=== PATIENT | female | born 1940 | race Caucasian/White ===

== ENCOUNTER 2019-02-07 09:47 | Emergency (ER) | payer MEDICARE ==
[~2019-02-07] VITALS: Ht 152.4 cm; Wt 70.0 kg
[~2019-02-07 09:47] MED LIST: AMOXICILLIN/PO500 MG PO; AMOXICILLIN500 MG PO; ANTIVERT25 MG PO; AUGMENTIN875TAB PO; FLOXIN OTIC0.3 % AU; KEFLEX500 M1 PO; LISINOP/HCTZ1 TA1 PO; MELOXICAM7.5 MG PO; MOBIC7.5 M1 PO; PERCOCET 5/325M1 TAB PO; PREDNISONE10 MG PO; SYMBICORT 80-4.5MCG IN; SYNTHROID50 MCG PO; VENTOLIN HFA IN; VITAMIN B-12500 MCG PO; VITAMIN D35000 UNIT PO; ZOFRAN ODT4 MG PO
[2019-02-07] MEDS ORDERED: SPIRIVA RE1.25 MCG/A (10:30)
[2019-02-07] MEDS ORDERED: HYDROCO/APAP1 TA9 PO (12:36)
[2019-02-07 13:43] VITALS: BP 157/77
== END 2019-02-07 13:43 | disposition home or self-care (01) ==
LOC: ED 09:47
PROC: 2W3RX1Z Immobilization of Left Lower Leg using Splint (ICD-10-PCS; principal; 2019-02-07)
DX: S92.355A Nondisplaced fracture of fifth metatarsal bone, left foot, initial encounter for closed fracture (principal); E03.9 Hypothyroidism, unspecified; J44.9 Chronic obstructive pulmonary disease, unspecified; W01.0XXA Fall on same level from slipping, tripping and stumbling without subsequent striking against object, initial encounter; Y92.009 Unspecified place in unspecified non-institutional (private) residence as the place of occurrence of the external cause

== ENCOUNTER 2020-05-14 09:48 | Emergency (ER) | payer MEDICARE ==
[~2020-05-14] VITALS: Ht 152.4 cm; Wt 63.0 kg
[~2020-05-14 09:48] MED LIST changes: +HYDROCO/APAP1 TA9 PO; +SPIRIVA RE1.25 MCG/A
[2020-05-14] MEDS ORDERED: MUPIROCIN21 TOP (12:26)
[2020-05-14 13:15] VITALS: BP 128/60
== END 2020-05-14 13:24 | disposition home or self-care (01) ==
LOC: ED 09:48
DX: S46.911A Strain of unspecified muscle, fascia and tendon at shoulder and upper arm level, right arm, initial encounter (principal); S80.811A Abrasion, right lower leg, initial encounter; S80.12XA Contusion of left lower leg, initial encounter; W11.XXXA Fall on and from ladder, initial encounter; Y92.009 Unspecified place in unspecified non-institutional (private) residence as the place of occurrence of the external cause

== ENCOUNTER 2024-08-07 13:55 | Inpatient (IN) | payer MEDICARE ==
[~2024-08-07] VITALS: Ht 152.4 cm; Wt 63.0 kg
[2024-08-07] VITALS (7 sets, daily range): BP systolic 130–157; BP diastolic 68–93
[~2024-08-07 13:55] MED LIST changes: +MUPIROCIN21 TOP
[2024-08-07] MEDS ORDERED: IPRATROPIUM-Albuterol 0.5MG-2.5MG/3 ML NEB ONE (14:10)
[2024-08-07] MEDS ORDERED: methylPREDNISolone SODIUM SUCC 125 MG/2 ML SDV IV ONE (14:10)
[2024-08-07 14:49] LABS: BASO% 0.7 % (0-3); EOS% 0.4 % (0-8); HEMATOCRIT 37.5 % (37.0-47.0); IMMATURE GRANULOCYTES 1.5 % (0.0-5.0); LYMPH% 33.8 % (15-41); MEAN CELL VOLUME 91.5 fL CALC (80.0-100.0); MEAN CORPUSCULAR HGB 29.3 pG CALC (26.0-32.0); MONO% 28.3 % (2-13); NEUT# 0.95 thou/uL (2.00-7.15); NEUT% 35.3 % (42-76); RED BLOOD COUNT 4.1 mill/uL (4.20-5.60); RED CELL DISTRI WIDTH 13.5 % (11.5-15.5)
[2024-08-07 15:03] LABS: ALBUMIN 4.4 g/dL (3.2-5.0); ALKALINE PHOSPHATASE 72 u/l (38-126); ANION GAP 10 (6-22 (CALC)); BILIRUBIN, TOTAL 0.3 mg/dL (0.02-1.3); BUN 20 mg/dL (8-23); BUN/CREATININE RATIO 17 (12-20 (CALC)); CARBON DIOXIDE 24 mmol/l (22-30); CHLORIDE 106 mmol/l (95-108); CREATININE 1.2 mg/dL (0.5-1.0); ESTIMATED GFR 44 ML/MIN (>=90 (CALC)); POTASSIUM 4.5 mmol/l (3.5-5.1); SODIUM 137 mmol/l (137-146); TOTAL PROTEIN 7.4 g/dL (6.3-8.2)
[2024-08-07 15:06] LABS: SGOT/AST 44 u/l (9-36)
[2024-08-07] MEDS ORDERED: LISINOPRIL20 M1 PO (17:07)
[2024-08-07] MEDS ORDERED: NORVASC PO (17:08)
[2024-08-07] MEDS ORDERED: SYMBICORT1 AE1 IN (17:10)
[2024-08-07] MEDS ORDERED: OMEPRAZOLE DR40 MG PO (17:11)
[2024-08-07] MEDS ORDERED: SPIRIVA RE2.5 MCG/AC IN (17:11)
[2024-08-07] MEDS ORDERED: VENTOLIN HFA108 MCG IN (17:12)
[2024-08-07] MEDS ORDERED: ACETAMINOPHEN325 MG PO (17:15)
[2024-08-07] MEDS ORDERED: UNISOM PO (17:16)
[2024-08-07] MEDS ORDERED: FIBER SELECT GUMMIES PO (17:18)
[2024-08-07] MEDS ORDERED: PRESERVISION AREDS 2 PO (17:19)
[2024-08-07] MEDS ORDERED: SODIUM CHLORIDE 0.9% 1,000 ML IV ONE (17:30)
[2024-08-07] MEDS ORDERED: ACETAMINOPHEN 325 MG/TAB PO PRN (19:40)
[2024-08-07] MEDS ORDERED: ALBUTEROL SULFATE 8 GM INH IN PRN (19:40)
[2024-08-07] MEDS ORDERED: DEXAMETHASONE 2 MG/TAB TAB PO SCH (19:41)
[2024-08-07] MEDS ORDERED: AZITHROMYCIN 500 MG in SODIUM CHLORIDE 0.9% 250 ML IV SCH (20:30)
[2024-08-07] MEDS ORDERED: FLUTICASONE/SALMETEROL 250 MCG/50 MCG PER DOSE INH IN SCH (21:00)
[2024-08-07] MEDS ORDERED: AZITHROMYCIN 500 MG/VIAL SDV IV ONE (21:30)
[2024-08-07] MEDS ORDERED: SODIUM CHLORIDE 0.9% 250 ML IV ONE (21:32)
[2024-08-08] VITALS (59 sets, daily range): BP systolic 105–160; BP diastolic 61–138
[2024-08-08 06:00] LABS: ALBUMIN 4.2 g/dL (3.2-5.0); BILIRUBIN, TOTAL 0.3 mg/dL (0.02-1.3); C-REACTIVE PROTEIN 2.5 mg/dL (0-0.9); POTASSIUM 4.3 mmol/l (3.5-5.1); TOTAL PROTEIN 6.9 g/dL (6.3-8.2)
[2024-08-08 06:06] LABS: HEMOGLOBIN 12.2 g/dl (12.0-16.0); IMMATURE GRANULOCYTES 5.8 % (0.0-5.0); LYMPH% 35.9 % (15-41); MEAN CELL VOLUME 91.6 fL CALC (80.0-100.0); MEAN CORPUSCULAR HGB 29.4 pG CALC (26.0-32.0); MEAN CORPUSCULAR HGB CONC 32.1 g/dL CAL (32.0-36.0); MONO% 7.8 % (2-13); NEUT# 0.51 thou/uL (2.00-7.15); NEUT% 49.5 % (42-76); RED BLOOD COUNT 4.15 mill/uL (4.20-5.60); RED CELL DISTRI WIDTH 13.1 % (11.5-15.5)
[2024-08-08] MEDS ORDERED: PANTOPRAZOLE SODIUM Sesquihydr 40 MG/TAB PO SCH ×2 (09:00→09:30)
[2024-08-08] MEDS ORDERED: amLODIPine BESYLATE 5 MG/TAB PO SCH (09:00)
[2024-08-08] MEDS ORDERED: CLARIFY DOSE SC SCH (09:00)
[2024-08-08] MEDS ORDERED: Zaleplon 5 MG/CAP PO PRN (20:00)
[2024-08-08] MEDS ORDERED: ENOXAPARIN SODIUM 40 MG/0.4 ML SYR SC SCH (21:00)
[2024-08-09] VITALS (9 sets, daily range): BP systolic 127–145; BP diastolic 67–92
[2024-08-09 06:26] LABS: MEAN CELL VOLUME 92.3 fL CALC (80.0-100.0); MEAN CORPUSCULAR HGB CONC 31.4 g/dL CAL (32.0-36.0); RED BLOOD COUNT 3.79 mill/uL (4.20-5.60); RED CELL DISTRI WIDTH 13.3 % (11.5-15.5)
[2024-08-09 06:49] LABS: ALBUMIN 3.9 g/dL (3.2-5.0); BILIRUBIN, TOTAL 0.2 mg/dL (0.02-1.3); CREATININE 1.1 mg/dL (0.5-1.0); POTASSIUM 4.4 mmol/l (3.5-5.1); TOTAL PROTEIN 6.4 g/dL (6.3-8.2)
[2024-08-09] MEDS ORDERED: ZITHROMAX250 MG PO (09:00)
[2024-08-09] MEDS ORDERED: DEXAMETHASON6 MG PO (09:00)
== END 2024-08-09 11:19 | DRG 177 ==
LOC: ED 13:55 → ED-I 14:47 → ED 14:47 → ED-I 17:00 → ED 17:36 → ICU 17:37 → ED-I 17:37 → ICU 19:57
PROVIDERS: Nurse Practitioner; ADMIT Internal Medicine; ATTEND Internal Medicine
DX: U07.1 COVID-19 (principal); J96.01 Acute respiratory failure with hypoxia; J44.1 Chronic obstructive pulmonary disease with (acute) exacerbation; I12.9 Hypertensive chronic kidney disease with stage 1 through stage 4 chronic kidney disease, or unspecified chronic kidney disease; N18.31 Chronic kidney disease, stage 3a; E78.5 Hyperlipidemia, unspecified; E03.9 Hypothyroidism, unspecified
CPT/HCPCS: J0456; J1650; Q9967